=== PATIENT | male | born 1985 | race African-American/Black ===

== ENCOUNTER 2019-02-09 22:36 | Emergency (ER) | payer SELFPAY ==
[~2019-02-09] VITALS: Ht 177.8 cm; Wt 81.6 kg
[2019-02-09 22:55] VITALS: BP 145/90
--- NOTE | 2019-02-09 22:55 | NUR ---
ED Nurse Note: Pt walked in ED, c/o right arm and headache pain due to cauted in stamped today. Pt is A/O X4. Vital signs stable at this time, waitng for orders.
--- NOTE | 2019-02-10 00:12 | NUR ---
ED Nurse Note: Meds given as ordered.
--- NOTE | 2019-02-10 00:30 | NUR ---
ED Nurse Note: Pt was sent down for CT of head.
--- NOTE | 2019-02-10 00:55 | NUR ---
ED Nurse Note: Pt returned from CT.
[2019-02-10] MEDS ORDERED: HYDROcodone/Acetamin 5/325 tab ORAL ONE (01:45)
[2019-02-10] MEDS ORDERED: Bacitracin Oint UD TOPIC ONE (03:30)
[2019-02-10] MEDS ORDERED: HYDROCODON-ACE1 EA15 ORAL (03:53)
[2019-02-10] MEDS ORDERED: CEPHALEXIN500 MG ORAL (03:54)
[2019-02-10] MEDS ORDERED: IBUPROFEN600 MG ORAL (03:54)
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
[2019-02-10 03:59] VITALS: BP 142/92
--- NOTE | 2019-02-10 03:59 | NUR ---
ER DISCHARGE NOTE: Patient is cleared to be discharged per Dr. Cevallos. Suturing done by , dressing applied. X-ray done, no fracture was found at this time. Pt is A/O x4 on room air with stable vital signs. Pt was given D/C and prescription instructions, Pt was able to verbalize understanding, pt ID band removed. pt is able to ambulate with steady gait and took all belongings.
--- NOTE | 2019-02-10 09:41 | Diagnostic Imaging Report ---
Indication: Head trauma Technique: Continuous helical CT scanning of the head was performed without intravenous contrast material. Axial and coronal 5 mm sections were generated. Radiation dose was minimized using automated exposure control Dose: Total Dose Length Product - DLP 1337.[address] Dose Index - CTDIvol(s) 70.38 mGy. Comparison: none Findings: The ventricular system is normal in size and configuration. There is no shift of midline structures. No abnormal extra-axial fluid collections are noted. There is equivocal minimal tentorial thickening which is probably physiologic. Otherwise no evidence of intracerebral bleeding. No other abnormal high or low density areas are noted within the brain. Intact calvarium. Visualized orbits and sinuses are unremarkable. The mastoids are clear. The nichols-white differentiation is normal. Impression: Equivocal minimal tentorial thickening, probably physiologic, minimal peritentorial subdural hemorrhage not completely excludable although very doubtful; consider follow-up scanning as clinically indicated No acute intrarenal bleed or mass effect otherwise. This agrees with the preliminary interpretation provided overnight by [facility]erad[facility] service. The CT scanner at [facility] is accredited by the [employer] and the scans are performed using protocols designed to limit radiation exposure to as low as reasonably achievable to attain images of sufficient resolution adequate for diagnostic evaluation.
== END 2019-02-10 03:59 | disposition home or self-care (01) ==
LOC: EMR 23:18
DX: S01.511A Laceration without foreign body of lip, initial encounter (principal); S31.010A Laceration without foreign body of lower back and pelvis without penetration into retroperitoneum, initial encounter; W01.110A Fall on same level from slipping, tripping and stumbling with subsequent striking against sharp glass, initial encounter; Y92.9 Unspecified place or not applicable
CPT/HCPCS: 70450; 99283

== ENCOUNTER 2019-02-10 12:38 | Emergency (ER) | payer SELFPAY ==
[~2019-02-10] VITALS: Ht 175.3 cm; Wt 81.6 kg
[~2019-02-10 12:38] MED LIST: CEPHALEXIN500 MG ORAL; HYDROCODON-ACE1 EA15 ORAL; IBUPROFEN600 MG ORAL
[2019-02-10 12:41] VITALS: BP 155/93
--- NOTE | 2019-02-10 12:42 | NUR ---
ED Nurse Note: patient walked into ED due to the stitches in medial lower lip fell off. patient stated that he had laceration last night, got stiches here last night. patient is alert and awake x4 ambulatory.
[2019-02-10] MEDS ORDERED: Lidocaine 1% MPF 10mg/ml 5ml IM ONE (13:00)
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
[2019-02-10 13:44] VITALS: BP 145/90
--- NOTE | 2019-02-10 13:44 | NUR ---
ER DISCHARGE NOTE: Patient is cleared to be discharged per Myhcal, pt is aox4, on room air, with stable vital signs. pt was given dc and prescription instructions, pt was able to verbalize understanding, pt id band and removed . pt is able to ambulate with steady gait. pt took all belongings.
== END 2019-02-10 13:44 | disposition home or self-care (01) ==
LOC: EMR 13:40
DX: S01.511A Laceration without foreign body of lip, initial encounter (principal); X58.XXXA Exposure to other specified factors, initial encounter; Y92.9 Unspecified place or not applicable
CPT/HCPCS: 99283